=== PATIENT | male | born 1980 | race American Indian/Alaskan Native ===

== ENCOUNTER 2020-10-25 04:15 | Emergency (ER) | payer SELFPAY ==
[2020-10-25] MEDS ORDERED: ALBUTEROL 2.5 MG/3 ML NEBU IH ONE (04:22)
[2020-10-25] MEDS ORDERED: IPRATROPIUM 0.02% NEBU 2.5 ML IH ONE (04:22)
--- NOTE | 2020-10-25 04:25 | Emergency Department Report ---
ED Asthma HPI - General Chief Complaint: Dyspnea/Respdistress Stated Complaint: CHERI PUI?: No Time Seen by Provider: 10/25/20 04:22 Source: EMS Mode of arrival: Stretcher Limitations: No Limitations - History of Present Illness Initial Comments: Chief complaint: Asthma HPI: This is a 40-year-old male with history of severe persistent asthma, intubations x2 presents with shortness of breath wheezing for the past day. Shortness of breath wheezing began at work around noon. No relief with albuterol MDI. Patient has persistent shortness of breath and wheezing. He has received 2 doses of COVID-19 vaccine. He normally uses Symbicort daily. However he is starting a new job. He does not have health insurance. He uses albuterol MDI and nebulizer solution. He also uses Combivent No known COVID-19 exposure. He works as a security sme. Patient arrived via EMS. Per EMS he received albuterol 2.5 mg, Decadron, IV m paulina. Complaint: "asthma attack", shortness of breath, wheezing -: Gradual, days(s) (1 day, symptoms began at noon) Asthma History: childhood onset, history of frequent attac, previously intubated Severity: moderate Context: ran out of meds Associated Symptoms: none Treatments Prior to Arrival: inhaled bronchodilator, IV steroid, other (IV magnesium) - Related Data Previous Rx's Medication Instructions Recorded Last Taken Type ALBUTEROL NEB's [Proventil 0.083% 2.5 mg IH TID PRN #1 box 10/25/20 Unknown Rx NEBS] Albuterol Mdi (or & Nicu Only) 2 puff IH QID PRN #8.5 gram 10/25/20 Unknown Rx [ProAir HFA Inhaler] Loratadine 10 mg PO DAILY 30 Days #30 capsule 10/25/20 Unknown Rx Prednisone [predniSONE 10 mg 10 mg PO .TAPER #1 tab.ds.pk 10/25/20 Unknown Rx (6-Day Pack, 21 Tabs)] Allergies Allergy/AdvReac Type Severity Reaction Status Date / Time No Known Allergies Allergy Verified 10/25/20 04:32 ED Review of Systems ROS: Stated complaint: CHERI Other details as noted in HPI Comment: All other systems reviewed and negative Respiratory: shortness of breath, wheezing. denies: cough Cardiovascular: denies: chest pain Gastrointestinal: denies: abdominal pain, nausea, vomiting ED Past Medical Hx - Past Medical History Previous Medical History?: Yes Hx Asthma: Yes (Intubation x2) - Surgical History Past Surgical History?: No - Family History Family history: lung disease (Mother has history of asthma), other ( mother has history of asthma) - Social History Smoking Status: Never Smoker Substance Use Type: None - Medications Home Medications: Home Medications Medication Instructions Recorded Confirmed Last Taken Type ALBUTEROL NEB's [Proventil 0.083% 2.5 mg IH TID PRN #1 box 10/25/20 Unknown Rx NEBS] Albuterol Mdi (or & Nicu Only) 2 puff IH QID PRN #8.5 gram 10/25/20 Unknown Rx [ProAir HFA Inhaler] Loratadine 10 mg PO DAILY 30 Days #30 capsule 10/25/20 Unknown Rx Prednisone [predniSONE 10 mg 10 mg PO .TAPER #1 tab.ds.pk 10/25/20 Unknown Rx (6-Day Pack, 21 Tabs)] ED Physical Exam - General Limitations: No Limitations General appearance: alert, other (Speaking for sentences with mild effort) - Head Head exam: Present: atraumatic, normocephalic - Eye Eye exam: Present: normal appearance - ENT ENT exam: Present: mucous membranes moist - Neck Neck exam: Present: normal inspection, full ROM - Respiratory Respiratory exam: Present: wheezes, prolonged expiratory, other (Expiratory wheezing). Absent: rales, rhonchi, accessory muscle use - Cardiovascular Cardiovascular Exam: Present: regular rate, normal rhythm, normal heart sounds. Absent: systolic murmur, diastolic murmur, rubs, gallop - GI/Abdominal GI/Abdominal exam: Present: soft, normal bowel sounds. Absent: distended, tenderness, guarding, rebound - Rectal Rectal exam: Present: deferred - Extremities Exam Extremities exam: Present: normal inspection - Neurological Exam Neurological exam: Present: alert, oriented X3 - Psychiatric Psychiatric exam: Present: normal affect, normal mood - Skin Skin exam: Present: warm, dry, intact, normal color. Absent: rash ED Course Vital Signs 10/25/20 10/25/20 10/25/20 04:24 04:25 04:48 Temperature 97.8 F Pulse Rate 76 78 Pulse Rate [ 78 Anterior Bilateral Throughout] Respiratory 12 Rate Respiratory 16 Rate [Anterior Bilateral Throughout] Blood Pressure 106/77 [Left] O2 Sat by Pulse 98 Oximetry - Reevaluation(s) Reevaluation #1: 10/25/20 05:38 Patient feels much better. He is still receiving continuous albuterol Atrovent bronchodilator therapy. Only slight wheeze on exam but good air movement. Patient will be discharged after treatment completed. ED Medical Decision Making - Medical Decision Making Acute asthma exacerbation: Patient is unable to afford inhaled corticosteroids which helps control his symptoms. Patient treated emergency department with continuous nebulizer therapy after appropriate treatment initiated by EMS. Patient prescribed prednisone taper albuterol MDI albuterol nebulizer solution and loratadine. Referred to outpatient medicine physician. Critical care attestation.: If time is entered above; I have spent that time in minutes in the direct care of this critically ill patient, excluding procedure time. ED Disposition Clinical Impression: Acute asthma exacerbation Disposition: DC-01 TO HOME OR SELFCARE Is pt being admited?: No Does the pt Need Aspirin: No Condition: Stable Instructions: Asthma Attack Prevention, Adult Prescriptions: Loratadine 10 mg PO DAILY 30 Days #30 capsule Prednisone [predniSONE 10 mg (6-Day Pack, 21 Tabs)] 10 mg PO .TAPER #1 tab.ds.pk Albuterol Mdi (or & Nicu Only) [ProAir HFA Inhaler] 2 puff IH QID PRN #8.5 gram PRN Reason: Shortness Of Breath ALBUTEROL NEB's [Proventil 0.083% NEBS] 2.5 mg IH TID PRN #1 box PRN Reason: Wheezing Referrals: KHANG CLARKE MD [Staff Physician] - 3-5 Days
[2020-10-25 05:58] VITALS: BP 110/71
== END 2020-10-25 05:58 | disposition home or self-care (01) ==
LOC: ED 04:15
DX: J45.901 Unspecified asthma with (acute) exacerbation (principal); Z98.890 Other specified postprocedural states; Z79.899 Other long term (current) drug therapy
CPT/HCPCS: 94640; 94644; 99283

== ENCOUNTER 2021-05-08 10:03 | Emergency (ER) | payer SELFPAY ==
[2021-05-08] MEDS ORDERED: IPRATROPIUM 0.02% NEBU 2.5 ML IH ONE (10:41)
[2021-05-08] MEDS ORDERED: methylPREDNISolone Sod Succinate 125 MG/2 ML INJ IV ONE (10:41)
[2021-05-08] MEDS ORDERED: ALBUTEROL 2.5 MG/3 ML NEBU IH ONE (10:41)
--- NOTE | 2021-05-08 10:43 | Emergency Department Report ---
ED Asthma HPI - General Chief Complaint: Adult Asthma Stated Complaint: ASTHMA ISSUES Time Seen by Provider: 05/08/21 10:32 Source: patient Mode of arrival: Ambulatory Limitations: No Limitations - History of Present Illness Initial Comments: 41-year-old male with a past medical history of asthma presents to the ER today with complaints of flareup of his asthma. Patient states symptoms started about 2 days ago. He states that he has been wheezing, having chest tightness, productive cough and shortness of breath. Reports some mild nasal congestion but no other URI symptoms. He denies any fever or chills. He states that he has been using his albuterol MDI, as well as his nebulizer machine about 4-5 times a day without much improvement of his symptoms. He denies any ill contacts or recent travel. He states that he does not smoke. He states that he has been intubated and admitted in the past with asthma. Last time was about 2 years ago. MD Complaint: shortness of breath, wheezing, other -: Gradual, days(s) (2) - Related Data Previous Rx's Medication Instructions Recorded Last Taken Type ALBUTEROL NEB's [Proventil 0.083% 2.5 mg IH TID PRN #1 box 05/08/21 Unknown Rx NEBS] Albuterol Mdi (or & Nicu Only) 2 puff IH QID PRN #8.5 gram 05/08/21 Unknown Rx [ProAir HFA Inhaler] Loratadine 10 mg PO DAILY 30 Days #30 capsule 05/08/21 Unknown Rx Prednisone [predniSONE 10 mg 10 mg PO .TAPER #1 tab.ds.pk 05/08/21 Unknown Rx (6-Day Pack, 21 Tabs)] Allergies Allergy/AdvReac Type Severity Reaction Status Date / Time No Known Allergies Allergy Verified 10/25/20 04:32 ED Review of Systems ROS: Stated complaint: ASTHMA ISSUES Other details as noted in HPI Comment: All other systems reviewed and negative Constitutional: denies: chills, fever Respiratory: cough, shortness of breath, wheezing Cardiovascular: other (Chest tightness) Gastrointestinal: denies: abdominal pain, nausea, diarrhea, constipation, hematemesis, hematochezia Genitourinary: denies: urgency, dysuria Musculoskeletal: denies: back pain, joint swelling, arthralgia Skin: denies: rash, lesions, change in color, change in hair/nails, pruritus Neurological: denies: headache, weakness, numbness, paresthesias, confusion, abnormal gait, vertigo Psychiatric: denies: anxiety, depression, auditory hallucinations, visual hallucinations, homicidal thoughts, suicidal thoughts Hematological/Lymphatic: denies: easy bleeding, easy bruising, swollen glands ED Past Medical Hx - Past Medical History Previous Medical History?: Yes Hx Asthma: Yes (Intubation x2) - Surgical History Past Surgical History?: No - Social History Smoking Status: Current Some Day Smoker - Medications Home Medications: Home Medications Medication Instructions Recorded Confirmed Last Taken Type ALBUTEROL NEB's [Proventil 0.083% 2.5 mg IH TID PRN #1 box 05/08/21 Unknown Rx NEBS] Albuterol Mdi (or & Nicu Only) 2 puff IH QID PRN #8.5 gram 05/08/21 Unknown Rx [ProAir HFA Inhaler] Loratadine 10 mg PO DAILY 30 Days #30 capsule 05/08/21 Unknown Rx Prednisone [predniSONE 10 mg 10 mg PO .TAPER #1 tab.ds.pk 05/08/21 Unknown Rx (6-Day Pack, 21 Tabs)] ED Physical Exam - General Limitations: No Limitations General appearance: alert, in no apparent distress - Head Head exam: Present: atraumatic, normocephalic, normal inspection - Eye Eye exam: Present: normal appearance, PERRL, EOMI Pupils: Present: normal accommodation - Neck Neck exam: Present: normal inspection, full ROM. Absent: meningismus - Respiratory Respiratory exam: Present: wheezes. Absent: respiratory distress, rales, rhonchi, stridor - Cardiovascular Cardiovascular Exam: Present: regular rate, normal rhythm, normal heart sounds - GI/Abdominal GI/Abdominal exam: Present: soft. Absent: distended, tenderness, guarding, rebound - Neurological Exam Neurological exam: Present: alert, oriented X3, CN II-XII intact, normal gait - Psychiatric Psychiatric exam: Present: normal affect, normal mood - Skin Skin exam: Present: intact ED Course Vital Signs 05/08/21 05/08/21 05/08/21 10:13 11:00 13:09 Temperature 98.4 F 98.1 F Pulse Rate 77 72 Pulse Rate [ 65 Bilateral] Respiratory 15 17 Rate Respiratory 20 Rate [Bilateral ] Blood Pressure 113/83 Blood Pressure 119/74 [Right] O2 Sat by Pulse 99 98 Oximetry ED Medical Decision Making - Medical Decision Making 1259: Patient reports feeling much better after DuoNeb treatment and IV Solu- Medrol. Repeat chest exam shows resolution of wheezing, and patient moving air well. He is not currently in any acute respiratory distress. he Is not toxic or ill-appearing. He appears well-hydrated. He is neurologically intact. Repeat VS are stable. There is no indication for additional testing, emergent treatment or admission at this time. Patient will be given refills on his albuterol MDI as well as his albuterol nebs and be started on a prednisone taper pack and Claritin. Patient expressed lisinopril instructions and agree with plan. Patient stable at time of discharge Critical care attestation.: If time is entered above; I have spent that time in minutes in the direct care of this critically ill patient, excluding procedure time. ED Disposition Clinical Impression: Asthma exacerbation Disposition: HOME / SELF CARE / HOMELESS Is pt being admited?: No Does the pt Need Aspirin: No Condition: Stable Instructions: Asthma, Adult, [id number] Additional Instructions: Recommend taking the prednisone pack, and continue using your albuterol MDI as well as albuterol nebulizer machine every 4-6 hours as needed. Continue taking the Claritin daily. Follow-up with your primary care doctor next. Return to the ER if your symptoms worsens or changes in any way Prescriptions: Loratadine 10 mg PO DAILY 30 Days #30 capsule Prednisone [predniSONE 10 mg (6-Day Pack, 21 Tabs)] 10 mg PO .TAPER #1 tab.ds.pk Albuterol Mdi (or & Nicu Only) [ProAir HFA Inhaler] 2 puff IH QID PRN #8.5 gram PRN Reason: Shortness Of Breath ALBUTEROL NEB's [Proventil 0.083% NEBS] 2.5 mg IH TID PRN #1 box PRN Reason: Wheezing Referrals: ROMAN BEATTY MD [Staff Physician] - 3-5 Days Time of Disposition: 13:01
[2021-05-08 13:10] VITALS: BP 119/74
== END 2021-05-08 13:09 | disposition home or self-care (01) ==
LOC: ED 10:03
DX: J45.901 Unspecified asthma with (acute) exacerbation (principal); F17.200 Nicotine dependence, unspecified, uncomplicated
CPT/HCPCS: 94644; 96374; 99283; J2930